=== PATIENT | female | born 2000 | race Caucasian/White ===

== ENCOUNTER 2018-07-25 23:24 | Emergency (ER) | payer OTHER ==
[~2018-07-25] VITALS: Ht 172.7 cm; Wt 72.6 kg
[2018-07-26 00:10] LABS: URINE BILIRUBIN NEGATIVE (Negative); URINE BLOOD TRACE (Negative); URINE CLARITY CLEAR; URINE COLOR YELLOW; URINE GLUCOSE-RANDOM* NEGATIVE (Negative); URINE KETONES 1+ (Negative); URINE LEUKOCYTES-REFLEX NEGATIVE (Negative); URINE NITRITE-REFLEX NEGATIVE (Negative); URINE PROTEIN (DIPSTICK) NEGATIVE (Negative); URINE SPECIFIC GRAVITY >= 1.030 (1.005-1.035); URINE UROBILINOGEN 0.2 E.U./dl (0.2-1.0)
[2018-07-26 00:51] LABS: ABSOLUTE NEUTROPHILS 4.4 thou/uL (1.4-8.2); EOSINOPHILS 4.1 % (0.0-3.0); HEMATOCRIT 38.7 % (37.0-47.0); HEMOGLOBIN 13.7 gm/dL (12.0-15.0); LYMPHOCYTES 18.4 % (24.0-44.0); MCH 31.8 pg (26.0-34.0); MCHC 35.4 g/dL (28.0-37.0); MONOCYTES 11.8 % (1.0-8.0); PLATELET COUNT 128 thou/uL (150-400); POLYS 64.7 % (36.0-66.0); RDW 12.1 % (10.5-14.5); WBC 6.7 thou/uL (4.0-11.0)
[2018-07-26 00:58] LABS: CALCIUM 9.3 mg/dL (8.5-10.1); CREATININE 0.6 mg/dL (0.6-1.0); POTASSIUM 3.4 mmol/L (3.5-5.1)
[2018-07-26 01:04] LABS: ALBUMIN 3.8 g/dL (3.4-5.0); TOTAL BILIRUBIN 0.8 mg/dL (<0.1-1.0); TOTAL PROTEIN 7.4 g/dL (6.4-8.2)
[2018-07-26] MEDS ORDERED: NAPROSYN500 MG PO (03:52)
[2018-07-26] MEDS ORDERED: TRAMADOL 50 MG50 MG PO (03:54)
[2018-07-26 04:12] VITALS: BP 106/58
== END 2018-07-26 04:13 | disposition home or self-care (01) ==
LOC: ER 23:24
PROVIDERS: Emergency Medicine
DX: N83.201 Unspecified ovarian cyst, right side (principal); N13.30 Unspecified hydronephrosis